=== PATIENT | female | born 1975 | race American Indian/Alaskan Native ===

== ENCOUNTER 2020-05-12 11:39 | Emergency (ER) | payer SELFPAY ==
[2020-05-12 12:00] VITALS: BP 129/88
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
== END 2020-05-12 15:07 | disposition home or self-care (01) ==
LOC: ED 11:39
DX: S16.1XXA Strain of muscle, fascia and tendon at neck level, initial encounter (principal); S39.012A Strain of muscle, fascia and tendon of lower back, initial encounter; Z79.899 Other long term (current) drug therapy; Z90.710 Acquired absence of both cervix and uterus; V49.49XA Driver injured in collision with other motor vehicles in traffic accident, initial encounter; Y92.410 Unspecified street and highway as the place of occurrence of the external cause; Y93.89 Activity, other specified; Y99.8 Other external cause status
CPT/HCPCS: 72040; 72100

== ENCOUNTER 2020-11-28 17:09 | Emergency (ER) | payer OTHER ==
--- NOTE | 2020-11-28 18:26 | Emergency Department Report ---
HPI - General Chief Complaint: Extremity Problem,Nontraumatic Time Seen by Provider: 11/28/20 18:10 - HPI HPI: MSE 6 The patient is a 45-year-old female present with a chief complaint of left lower extremity pain. Patient states yesterday she was exercising performing cardio which included working on a treadmill and elliptical. Patient states yesterday she noticed pain and swelling behind her left calf. The patient states she does not recall a specific injury or event preceding her pain. Patient states she also developed some substernal chest discomfort whenever she raises her knees to her chest during exercising. Overall standing or walking normally she does not feel any discomfort. Patient denies history of recent flights/long car trips, cough, fever, shortness of breath or nausea/vomiting. Patient denies pleurisy. Patient currently gets her leg pain a score of 8/10 ED Past Medical Hx - Past Medical History Previous Medical History?: No - Surgical History Past Surgical History?: No Additional Surgical History: Hysterectomy - Family History Family history: no significant - Social History Smoking Status: Never Smoker Substance Use Type: None (Denies illicit drug), Alcohol (Occasional) - Medications Home Medications: Home Medications Medication Instructions Recorded Confirmed Last Taken Type Naproxen [EC-Naprosyn] 500 mg PO BID PRN #14 tablet. 05/12/20 Unknown Rx methOCARBAMOL [Robaxin TAB] 500 mg PO BID PRN #14 tab 05/12/20 Unknown Rx Cyclobenzaprine [Flexeril] 10 mg PO TID PRN #10 tablet 11/28/20 Unknown Rx Ibuprofen [Motrin 800 MG tab] 800 mg PO Q8HR PRN #20 tablet 11/28/20 Unknown Rx ED Review of Systems ROS: Stated complaint: LEG PAIN SWOLLEN Other details as noted in HPI Constitutional: denies: fever Eyes: denies: eye pain ENT: denies: throat pain Respiratory: denies: shortness of breath, SOB with exertion Cardiovascular: chest pain Endocrine: no symptoms reported Gastrointestinal: denies: nausea, vomiting Genitourinary: denies: dysuria Musculoskeletal: myalgia Neurological: denies: headache Physical Exam - Physical Exam Vital Signs: Vital Signs 11/28/20 17:21 Temperature 98 F Pulse Rate 79 Respiratory 16 Rate Blood Pressure 109/65 [Left] O2 Sat by Pulse 100 Oximetry Physical Exam: GENERAL: The patient is well-developed well-nourished female sitting on chair not appearing to be in acute distress. [] HEENT: Normocephalic. Atraumatic. Extraocular motions are intact. Patient has moist mucous membranes. NECK: Supple. Trachea midline CHEST/LUNGS: Clear to auscultation. There is no respiratory distress noted. HEART/CARDIOVASCULAR: Regular. There is no tachycardia. There is no gallop rub or murmur. ABDOMEN: Abdomen is soft, nontender. Patient has normal bowel sounds. There is no abdominal distention. SKIN: There is no rash. There is a region of swelling in the left popliteal fossa. No overlying skin changes. There is no diaphoresis. NEURO: The patient is awake, alert, and oriented. The patient is cooperative. The patient has no focal neurologic deficits. The patient has normal speech. GCS 15 MUSCULOSKELETAL: There is no evidence of acute injury. ED Course Vital Signs 11/28/20 17:21 Temperature 98 F Pulse Rate 79 Respiratory 16 Rate Blood Pressure 109/65 [Left] O2 Sat by Pulse 100 Oximetry ED Medical Decision Making - Lab Data Result diagrams: 11/28/20 19:24 11/28/20 19:24 Laboratory Tests 11/28/20 11/28/20 11/28/20 19:24 19:24 19:24 WBC 6.2 RBC 3.81 Hgb 12.5 Hct 36.9 MCV 97 MCH 33 H MCHC 34 RDW 12.7 L Plt Count 304 Lymph % (Auto) 42.9 H Mora % (Auto) 10.9 H Eos % (Auto) 1.5 Baso % (Auto) 0.4 Lymph # (Auto) 2.7 Mora # (Auto) 0.7 Eos # (Auto) 0.1 Baso # (Auto) 0.0 Seg Neutrophils % 44.3 Seg Neutrophils # 2.8 D-Dimer 174.85 Sodium 143 Potassium 4.0 Chloride 105.2 Carbon Dioxide 24 Anion Gap 18 BUN 8 Creatinine 0.5 L Estimated GFR > 60 BUN/Creatinine Ratio 16 Glucose 90 Calcium 9.4 Total Creatine Kinase 113 CK-MB (CK-2) 1.6 CK-MB (CK-2) Rel Index 1.4 Troponin T < 0.010 - EKG Data -: EKG Interpreted by Mn EKG shows normal: sinus rhythm Rate: normal - EKG Data When compared to previous EKG there are: previous EKG unavailable Interpretation: nonspecific ST-T wave ryan (Biphasic T wave in V3) - Radiology Data Radiology results: report reviewed (Chest x-ray, left lower extremity Doppler), image reviewed (Chest x-ray, left lower extremity Doppler) interpreted by me: Chest x-ray-no definite focal infiltrates, no pneumothorax [address] [address] XRay Report Signed Patient: SAVANNAH BURGER MR#: [id number] : 1975 Acct:[id number] Age/Sex: 45 / F ADM Date: 11/28/20 Loc: ED Attending Dr: Ordering Physician: EVE BLAND MD Date of Service: 11/28/20 Procedure(s): XR chest routine 2V Accession Number(s): [id number] cc: EVE BLAND MD Fluoro Time In Minutes: CHEST 2 VIEWS INDICATION / CLINICAL INFORMATION: Chest discomfort, left calf pain. COMPARISON: None available. FINDINGS: SUPPORT DEVICES: None. HEART / MEDIASTINUM: No significant abnormality. LUNGS / PLEURA: No significant pulmonary abnormality. No significant pleural effusion. No pneumothorax. ADDITIONAL FINDINGS: No significant additional findings. IMPRESSION: 1. No acute abnormality of the chest. Signer Name: Davi Mccormick MD Signed: 11/28/2020 8:58 PM Workstation Name: [id number] Transcribed By: MN Dictated By: Davi Mccormick MD Electronically Authenticated By: Davi Mccormick MD Signed Date/Time: 11/28/202057 DD/ 57 TD/TT: Print Cancel [address] [address] Vascular Lab Report Signed Patient: SAVANNAH BURGER MR#: [id number] : 1975 Acct:[id number] Age/Sex: 45 / F ADM Date: 11/28/20 Loc: ED Attending Dr: Ordering Physician: EVE BLAND MD Date of Service: 11/28/20 Procedure(s): VL venous duplex LE LT Accession Number(s): [id number] cc: EVE BLAND MD DUPLEX DOPPLER LOWER EXTREMITY VEINS, LEFT INDICATION / CLINICAL INFORMATION: Pain and swelling. TECHNIQUE: Duplex doppler imaging was performed through the veins of the left lower extremity using venous compression and other maneuvers. COMPARISON: None available. FINDINGS: LEFT COMMON FEMORAL VEIN: Negative. LEFT FEMORAL VEIN: Negative. LEFT POPLITEAL VEIN: Negative. LEFT CALF VEINS: Negative. ADDITIONAL FINDINGS: Martines's cyst is noted within the popliteal fossa. IMPRESSION: 1. No sonographic evidence for DVT in the left lower extremity. 2. Incidentally noted Martines's cyst. Signer Name: Miguel A Goodrich DO Signed: 11/28/2020 11:44 PM Workstation Name: [id number] Transcribed By: MEIR Dictated By: MIGUEL A GOODRICH DO Electronically Authenticated By: MIGUEL A GOODRICH DO Signed Date/Time: 11/28/202343 DD/ 42 TD/TT: Print Cancel - Differential Diagnosis DVT, PE, GERD, atypical chest pain, muscle strain, Martines's cyst Critical care attestation.: If time is entered above; I have spent that time in minutes in the direct care of this critically ill patient, excluding procedure time. ED Disposition Clinical Impression: Bakers cyst, Left leg pain Disposition: HOME / SELF CARE / HOMELESS Is pt being admited?: No Does the pt Need Aspirin: No Condition: Stable Instructions: Martines Cyst Additional Instructions: Return to the emergency department should you develop worsening symptoms, inability to tolerate food or liquids, high fever or any other concerns Prescriptions: Cyclobenzaprine [Flexeril] 10 mg PO TID PRN #10 tablet PRN Reason: Muscle Spasm Ibuprofen [Motrin 800 MG tab] 800 mg PO Q8HR PRN #20 tablet PRN Reason: Pain, Moderate (4-6) Referrals: ALISA WHITE MD [Staff Physician] - 3-5 Days (Dr. White is an orthopedic surgeon. Please follow-up with him for further evaluation) Time of Disposition: 00:01
[2020-11-28 19:50] LABS: Basophils % (Auto) 0.4 % (0.0-1.8); Eosinophils # (Auto) 0.1 K/mm3 (0.0-0.4); Eosinophils % (Auto) 1.5 % (0.0-4.3); Hematocrit 36.9 % (30.3-42.9); Hemoglobin 12.5 gm/dl (10.1-14.3); Lymphocytes # (Auto) 2.7 K/mm3 (1.2-5.4); Lymphocytes % (Auto) 42.9 % (13.4-35.0); Mean Corpuscular HGB Conc 34 % (30-34); Mean Corpuscular Volume 97 fl (79-97); Monocytes # (Auto) 0.7 K/mm3 (0.0-0.8); Monocytes % (Auto) 10.9 % (0.0-7.3); Platelet Count 304 K/mm3 (140-440); Red Blood Count 3.81 M/mm3 (3.65-5.03); Red Cell Distribution Width 12.7 % (13.2-15.2)
[2020-11-28 20:14] LABS: Creatine Kinase MB 1.6 ng/mL (0.0-4.0)
[2020-11-28 20:15] LABS: Blood Urea Nitrogen 8 mg/dL (7-17); Calcium 9.4 mg/dL (8.4-10.2); Hemolysis Index 8
[2020-11-28 20:25] LABS: BUN/Creatinine Ratio 16
--- NOTE | 2020-11-28 21:03 | XRay Report ---
CHEST 2 VIEWS INDICATION / CLINICAL INFORMATION: Chest discomfort, left calf pain. COMPARISON: None available. FINDINGS: SUPPORT DEVICES: None. HEART / MEDIASTINUM: No significant abnormality. LUNGS / PLEURA: No significant pulmonary abnormality. No significant pleural effusion. No pneumothora x. ADDITIONAL FINDINGS: No significant additional findings. IMPRESSION: 1. No acute abnormality of the chest. Signer Name: Davi Mccormick MD Signed: 11/28/2020 8:58 PM Workstation Name: [id number]
--- NOTE | 2020-11-28 23:48 | Vascular Lab Report ---
DUPLEX DOPPLER LOWER EXTREMITY VEINS, LEFT INDICATION / CLINICAL INFORMATION: Pain and swelling. TECHNIQUE: Duplex doppler imaging was performed through the veins of the left lower extremity using v enous compression and other maneuvers. COMPARISON: None available. FINDINGS: LEFT COMMON FEMORAL VEIN: Negative. LEFT FEMORAL VEIN: Negative. LEFT POPLITEAL VEIN: Negative. LEFT CALF VEINS: Negative. ADDITIONAL FINDINGS: Martines's cyst is noted within the popliteal fossa. IMPRESSION: 1. No sonographic evidence for DVT in the left lower extremity. 2. Incidentally noted Martines's cyst. Signer Name: Miguel A Mullen DO Signed: 11/28/2020 11:44 PM Workstation Name: [id number]
[2020-11-29 00:34] VITALS: BP 110/62
--- NOTE | 2020-12-04 09:54 | Electrocardiograph Report ---
[facility] Test Date: 2020-11-28 Test Time: 21:27:54 Pat Name: SAVANNAH BURGER Department: Room: Gender: F Night Clerk Auditor: RR : 1975 Requested By: EVE BLAND Order Number: [id number] Reading MD: Terell Valenzuela Measurements Intervals [place] Rate: 66 P: -8 NH: 148 QRS: 40 QRSD: 81 T: 2 QT: 419 QTc: 439 Interpretive Statements Sinus rhythm Nonspecific anterior T wave abnormality No previous ECG available for comparison Electronically Signed On 12-04-2020 9:54:26 EDT by Terell Valenzuela
== END 2020-11-29 00:08 | disposition home or self-care (01) ==
LOC: ED 17:09
DX: M71.22 Synovial cyst of popliteal space [Baker], left knee (principal)
CPT/HCPCS: 36415; 71046; 80048; 82550; 82553; 84484; 85025; 85379; 93005; 99284

== ENCOUNTER 2021-07-02 13:15 | Emergency (ER) | payer SELFPAY ==
[2021-07-02 13:36] VITALS: BP 107/77
--- NOTE | 2021-07-02 15:06 | Emergency Department Report ---
ED Dysuria HPI - HPI Chief Complaint: Abdominal Pain Stated Complaint: POSS INFECTION Time Seen by Provider: 07/02/21 15:05 Duration: 2 Days Location of Discomfort: Suprapubic Severity: Mild Symptoms: Dysuria: Yes, Frequency: No, Suprapubic Pain: Yes, Flank Pain: No, Fever: No, Hematuria: No, Abdominal Pain: No, Previous UTI's: Yes Other History: Patient is a 45-year-old female that comes to ER with dysuria, suprapubic pain. no d/c. no chills. no fever. no vag bleed. had partial hysterctomy. Pt had full w/u at [place] yesterday. She showed me her portal labs. WBC 11. Mod leuks in urine. no nitrates. She had to leave to get her kids so she comes here today with same symptoms. She has no pcp. no home meds ED Review of Systems ROS: Stated complaint: POSS INFECTION Other details as noted in HPI Comment: All other systems reviewed and negative ED Past Medical Hx - Past Medical History Previous Medical History?: No - Surgical History Past Surgical History?: No Additional Surgical History: Hysterectomy - Family History Family history: no significant - Social History Smoking Status: Never Smoker Substance Use Type: None - Medications Home Medications: Home Medications Medication Instructions Recorded Confirmed Last Taken Type Naproxen [EC-Naprosyn] 500 mg PO BID PRN #14 tablet. 05/12/20 Unknown Rx methOCARBAMOL [Robaxin TAB] 500 mg PO BID PRN #14 tab 05/12/20 Unknown Rx Cyclobenzaprine [Flexeril] 10 mg PO TID PRN #10 tablet 11/28/20 Unknown Rx Ibuprofen [Motrin 800 MG tab] 800 mg PO Q8HR PRN #20 tablet 11/28/20 Unknown Rx Sulfamethoxazole/Trimethoprim 1 each PO BID #10 tablet 07/02/21 Unknown Rx [Bactrim DS TAB] Dysuria Exam - Exam General: Vital signs noted. No distress. Alert and acting appropriately. Exam: Yes Moist Mucous Membranes, No CVA Tenderness, No Abdominal Tenderness, No Rigidity or Guarding ED Course Vital Signs 07/02/21 13:32 Temperature 99.2 F Pulse Rate 88 Respiratory 17 Rate Blood Pressure 107/77 O2 Sat by Pulse 98 Oximetry ED Medical Decision Making - Medical Decision Making UA has been sent. Should she need something other than Bactrim please call her. Vital Signs 07/02/21 13:32 Temperature 99.2 F Pulse Rate 88 Respiratory 17 Rate Blood Pressure 107/77 O2 Sat by Pulse 98 Oximetry Patient medicated with motrin and bactrum in ER dc home with dc plan of care including diet, meds, activity and follow up. She verbalizes understanding of d/c plan of care. - Differential Diagnosis ro uti Critical care attestation.: If time is entered above; I have spent that time in minutes in the direct care of this critically ill patient, excluding procedure time. ED Disposition Clinical Impression: UTI (urinary tract infection) Qualifiers: Urinary tract infection type: site unspecified Hematuria presence: without hematuria Qualified Code(s): N39.0 - Urinary tract infection, site not specified Disposition: HOME / SELF CARE / HOMELESS Is pt being admited?: No Does the pt Need Aspirin: No Condition: Stable Instructions: Urinary Tract Infection, Adult, [id number], Abdominal Pain (ED) Additional Instructions: med as ordered today follow up with pcp when done with medication to be sure this has gone away drink a lot of water motrin or tylenol for pain Prescriptions: Sulfamethoxazole/Trimethoprim [Bactrim DS TAB] 1 each PO BID #10 tablet Referrals: KLAUDIA GARCIA MD [Staff Physician] - 3-5 Days Time of Disposition: 15:09
[2021-07-02] MEDS ORDERED: IBUPROFEN 800 MG TAB PO ONE (15:10)
[2021-07-02] MEDS ORDERED: SULFAMETHOXAZOLE/TRIMETHOPRIM 800/160MG DS TAB PO ONE (15:10)
[2021-07-02 17:02] LABS: Bilirubin,Urine NEG (Negative); Blood,Urine NEG (Negative); Color,Urine Amber (Yellow); Mucus,Urine 3+ /HPF
== END 2021-07-02 15:29 | disposition home or self-care (01) ==
LOC: ED 13:15
DX: N39.0 Urinary tract infection, site not specified (principal)
CPT/HCPCS: 81001; 99283